=== PATIENT | male | born 1955 | race Caucasian/White ===

== ENCOUNTER → 2024-01-13 14:08 | Outpatient (REF) | payer MEDICARE, OTHER, SELFPAY | LOC: HWRAD 14:08 | PROVIDERS: ATTENDING PHYSICIAN Anesthesiology Pain Medicine; FAMILY PHYSICIAN Family Medicine | DX: M43.16 Spondylolisthesis, lumbar region (principal) | CPT/HCPCS: 72110 ==

== ENCOUNTER 2025-03-08 12:54 | Emergency (ER) | payer MEDICARE, OTHER, SELFPAY ==
[2025-03-08 12:57] VITALS: BP 142/81
[2025-03-08 15:06] VITALS: BP 140/84
[2025-03-08 15:36] LABS: % Basophils 0.5 % (0-2); % Eosinophils 0.2 % (0-6); % Immature Granulocytes 0.6 % (0-0.5); % Lymphocytes 16.7 % (20.5-51.1); % Monocytes 10.7 % (1.7-9.3); % Neutrophils 71.3 % (42.2-75.2); Absolute Immature Granulocytes 0.1 10^3/uL (0-0.05); Absolute Lymphocytes 1.4 10^3/uL (1.2-3.4); Absolute Monocytes 0.9 10^3/uL (0.1-0.6); Absolute Neutrophils 6.1 10^3/uL (1.4-6.5); Hematocrit 40.8 % (39.0-52.0); Hemoglobin 13.9 g/dL (13.0-18.0); Mean Corp Hgb Conc. 34.1 g/dL (33.0-37.0); Mean Corpuscular Hgb 30.9 pg (27.0-31.0); Mean Corpuscular Volume 90.7 fL (80.0-94.0); Mean Platelet Volume 9.1 fL (7.4-10.4); Nucleated Red Blood Cells % 0 % (-); Platelet Count 216 10^3/uL (130-400); Red Cell Dist. Width 13.1 % (11.5-14.5); White Blood Cell Count 8.5 10^3/uL (4.8-10.8)
[2025-03-08 15:44] LABS: ALT (SGPT) 26 U/L (0-50); AST (SGOT) 29 U/L (17-59); Albumin 4.1 g/dl (3.5-5.0); Alkaline Phosphatase 52 U/L (38-126); Blood Urea Nitrogen 21 mg/dl (9-20); Calcium 8.9 mg/dl (8.4-10.2); Carbon Dioxide 28 mmol/L (22-30); Chloride 107 mmol/L (98-107); Glucose 89 mg/dl (70-99); Potassium 4.5 mmol/L (3.5-5.1); Sodium 141 mmol/L (135-145); Total Bilirubin 0.6 mg/dl (0.2-1.3); Total Protein 6.3 g/dl (6.3-8.2); eGFR > 60.00
[2025-03-08 16:31] LABS: C-Reactive Protein < 5.00 mg/L (0.0-10.00)
[2025-03-08] MEDS: MORPHINE SULFATE 2 MG IV (17:02)
--- NOTE | 2025-03-08 17:30 | ED.GENMED ---
History of Present Illness
General
Chief Complaint: Back Pain
Time Seen by Provider: 03/08/25 14:15
History of Present Illness
History of Present Illness:
Note:
CHIEF COMPLAINT(S)
Back pain and sensation of breathlessness.
HISTORY OF PRESENT ILLNESS
The patient is a 69-year-old male with a history of lymphoma, treated with radiation therapy four years ago, presenting with persistent and severe back pain. He describes the pain as 'brutal' and unaltered since receiving an epidural injection last
Wednesday, which did not provide even temporary relief. The patient reports peculiar sensations, describing a strange feeling spreading down the leg and an explosive sensation in his toes. Despite these symptoms, he can ambulate and maintains control
over his bladder. Additionally, the patient reports episodes of not being able to breathe, mentioning this occurred late in the morning and yesterday, without associated pain or recent fevers or night sweats.
EXTERNAL RECORDS REVIEWED
The patient had an MRI approximately two weeks ago at this hospital to investigate his symptoms, prompted by his spine and pain management doctor�s concern over certain areas appearing enlarged on imaging. The results of this MRI are pending review.
CHRONIC MEDICAL CONDITIONS SIGNIFICANTLY AFFECTING CARE
- History of lymphoma treated with radiation.
- On blood thinners (specifically Eliquis).
REVIEW OF SYSTEMS
- Neurological: Numbness and peculiar sensations in the leg and toes, no loss of bladder control.
- General: No recent fever or night sweats.
- Respiratory: Episodes of breathlessness without associated pain.
PHYSICAL EXAM
GEN: Well appearing, NAD, WDWN
HEENT: Oral mucosa moist, no scleral icterus
Cardiac: Regular rate
Lung: No respiratory distress, no tachypnea
Abdomen: Soft, nontender
MSK: No gross deformity or injuries
Skin: Good color, no pallor or jaundice, no rashes
Neuro: AO x3, moves all extremities freely. Lower extremity strength is normal in all delgado, and patella reflexes are present and normal. Sensation to light touch is intact in both lower extremities.
Psych: Calm, cooperative
- Nursing notes reviewed and vital signs reviewed.
PLAN
The plan includes reviewing the patients recent MRI results and collaborating with Dr. Cooper from [facility] to determine the most appropriate course of action.
DIFFERENTIAL DIAGNOSIS
The Differential Diagnosis includes, in no particular order and is not limited to:
1. Radiation-induced spinal cord damage
2. Epidural abscess or hematoma
3. Lymphoma recurrence with spinal involvement
4. Disc herniation
5. Spinal stenosis
6. Degenerative disc disease
7. Osteoarthritis of the spine
8. Peripheral neuropathy
9. Spinal cord compression
10. Anxiety-related breathlessness
CARE-UPDATE
03/08/25 - 14:[address] Cooper; MRI unremarkable. Low suspicion for epidural abscess or hematoma. Suspecting non-lumbar causes for back pain; plan to conduct lab tests and imaging of abdomen and pelvis. Include CRP test for epidural abscess screening.
Disposition:
SUMMARY OF ENCOUNTER
The patient is a 69-year-old male with chronic back pain presenting with worsening symptoms. Alongside the back pain, he reports radicular symptoms into his legs but maintains urinary continence and does not exhibit saddle anesthesia. Despite a
recent epidural injection, he obtained no relief. After discussion with a pain specialist, it was decided to explore non-lumbar causes for the back pain.
DISPOSITION
Discharged in stable condition to follow up with outpatient pain specialty services.
ASSESSMENT
The patient�s chronic back pain, accompanied by radicular symptoms, suggests complex underlying causes not limited to lumbar origins.
EMERGENCY TREATMENTS ADMINISTERED
The patient received IV morphine, which improved his pain.
MANAGEMENT OF THE PATIENTS CARE WAS DISCUSSED WITH
The case was discussed with a pain specialist. It was concluded that non-lumbar etiologies should be pursued further.
PLAN
The patient is advised to follow up with an outpatient pain specialist for continued management.
MEDICAL DECISION MAKING
The patient presented with the complex issue of worsening chronic back pain. After evaluating the negative lab results, including a negative CRP which reduced the suspicion of an epidural abscess, the decision was made to explore causes beyond
lumbar origins, however workup was unrevealing. The discussion with the pain specialist shaped this management plan, and the choice of discharge was influenced by the patients improved pain response to IV morphine.
Past History
Past History
ED Past Medical History: Arrthythmia (Atrial fibrillation), CVA, HTN, Other (DVT), Other (Migraines,) and Other (Pulmonary stenosis)
ED Past Surgical History: Bowel resection, Cholecystectomy and Orthopedic (Left knee replacement)
Social History
Tobacco: Non-smoker
Alcohol: None
Drug: None
Personal:
Living: with family
Employment: Other
Family History
Family History: Other
Phy Exam
Physical Exam
Physical Exam:
.
Course
Orders/Labs/Results
Orders:
Orders
03/08/25 14:56
CT Abd/Pel (IV only)-DH only Urgent
Comment:
Reason For Exam: back pain
03/08/25 14:59
CRP [C-Reactive Protein] Urgent
Complete Blood Count/With Diff Urgent
Comprehensive Metabolic Panel Urgent
03/08/25 16:56
Morphine Sulfate 2 mg IV NOW STA
Abnormal Lab Results
03/08/25
14:59
RBC 4.50 L 10^6/uL
(4.70-6.10)
Abs Immat Gran (auto) 0.1 H 10^3/uL
(0-0.05)
Absolute Monos (auto) 0.9 H 10^3/uL
(0.1-0.6)
Immature Gran % 0.6 H %
(0-0.5)
Lymphocytes % 16.7 L %
(20.5-51.1)
Monocytes % 10.7 H %
(1.7-9.3)
BUN 21 H mg/dl
(9-20)
03/08/25 14:59
03/08/25 14:59
Vital Signs
Initial and Last Documented VS:
Initial Vital Signs
Temp Pulse Resp BP Pulse Ox
98.1 F 60 18 142/81 95
03/08/25 12:57 03/08/25 12:57 03/08/25 12:57 03/08/25 12:57 03/08/25 12:57
Last Documented Vital Signs
Temp Pulse Resp BP Pulse Ox
98.1 F 60 18 140/84 98
03/08/25 12:57 03/08/25 12:57 03/08/25 12:57 03/08/25 15:06 03/08/25 15:15
*Critical Care Note
Total Time (30-74mins, 75-104mins- exclusive of procedures): Not Applicable
ED Attending Note
-
Portions of this chart may have been created with voice recognition software.� Occasional wrong word or��sound alike� substitutions may have occurred due to the inherent limitations of voice recognition software.
Discharge Plan
Departure
Patient Disposition: Home (Routine Discharge)
Date of Disposition: 03/08/25
Time of Disposition: 17:30
Patient with high blood pressure during this ER visit?: No
Discharge Problem:
Chronic back pain
Instructions: Low Back Pain (DC)
Prescriptions:
New
tramadol 50 mg tablet
25 - 50 mg PO Q8H PRN (Reason: Pain) Qty: 10 0RF
No Action
losartan 50 mg Tablet
50 mg PO DAILY
escitalopram oxalate [Lexapro] 20 mg Tablet
20 mg PO DAILY
rosuvastatin 10 mg Tablet
10 mg PO DAILY
Eliquis 5 mg Tablet
5 mg PO BID
acetaminophen 325 mg Tablet
650 mg PO Q4HPRN PRN (Reason: FITZGERALD, mild pain, or temp >100.4F) Qty: 0 0RF
cyclobenzaprine 15 mg Capsule,Extended Release 24hr
10 mg PO DAILY PRN (Reason: muscle pain)
ugkfzhxjhg-bsxovrv-oewymoya 50-325-40 mg Capsule
1 cap PO Q4H PRN (Reason: migraine)
tramadol 50 mg Tablet
50 mg PO BID PRN (Reason: Pain)
metoprolol tartrate 25 mg Tablet
12.5 mg PO BID Qty: 60 0RF
dofetilide [Tikosyn] 500 mcg capsule
500 mcg PO Q12H Qty: 60 11RF
Referrals:
Layne Cooper MD [Active, Anesthesiology]
PRIVATE,PHYSICIAN [Family Provider, Internal Medicine]
Interventions
Interventions:
*Risk Screen - Suicide Last Done: 03/08/25 12:57
*General Assessment Last Done: 03/08/25 12:57
*Neglect/Abuse Screening Last Done: 03/08/25 12:57
*ED- Fall Risk Assessment Last Done: 03/08/25 15:00
*ED COVID-19 Vaccine History Last Done: 03/08/25 15:00
*Nursing Disposition Last Done: 03/08/25 17:53
ED-Musculoskeletal Assessment Last Done: 03/08/25 15:00
Discharge Date and Time
Discharge Date/Time: 03/08/25 17:54
Print Language: FINNISH
== END 2025-03-08 17:54 | disposition home or self-care (01) ==
LOC: EMR 12:54
PROVIDERS: Physician Assistant; EMERGENCY PHYSICIAN Student in an Organized Health Care Education/Training Program
DX: G89.29 Other chronic pain (principal); M54.9 Dorsalgia, unspecified; I10 Essential (primary) hypertension; I48.91 Unspecified atrial fibrillation; Z85.72 Personal history of non-Hodgkin lymphomas; Z79.01 Long term (current) use of anticoagulants; Z86.718 Personal history of other venous thrombosis and embolism; Z86.73 Personal history of transient ischemic attack (TIA), and cerebral infarction without residual deficits; Z92.3 Personal history of irradiation
CPT/HCPCS: 96374; 99284; 74177; 80053; 85025; 86140; Q9967

== ENCOUNTER 2025-07-31 12:17 | Emergency (ER) | payer MEDICARE, OTHER, SELFPAY ==
[2025-07-31 12:19] VITALS: BP 157/90
[2025-07-31 14:01] VITALS: BP 169/92
--- NOTE | 2025-07-31 14:02 | ED.GENMED ---
History of Present Illness
<Joshua Orta MD, Resident - Last Filed: 07/31/25 16:25>
General
Chief Complaint: Cancer Problem
Source: patient
Time Seen by Provider: 07/31/25 13:38
History of Present Illness
History of Present Illness:
Patient is a 70-year-old male with PMH of lymphoma s/p radiation who presents to the [place] ED for intractable pain. Patient states pain is chronic, 10/10 intensity, located on his spine, with radiation up his neck and down his extremities.
Pain is worse with movement. Patient follows with painting and coating worker at [facility]. Patient states he follows with his oncologist at [facility] in [place]. Patient normally takes
hydrocodone�acetaminophen 5 mg-325 mg for pain 3 times daily, but he has had breakthrough pain for the past year. Patient has had a spinal stimulator implanted and received epidural steroid injections, but these interventions have not resolved his
pain.
Past History
<Joshua Orta MD, Resident - Last Filed: 07/31/25 16:25>
Past History
ED Past Medical History: Arrthythmia (Atrial fibrillation), CVA, HTN, Other (DVT), Other (Migraines,) and Other (Pulmonary stenosis)
ED Past Surgical History: Bowel resection, Cholecystectomy and Orthopedic (Left knee replacement)
Social History
Tobacco: Non-smoker
Alcohol: None
Drug: None
Personal:
Living: with family
Employment: Other
Family History
Family History: Other
Review of Systems
<Joshua Orta MD, Resident - Last Filed: 07/31/25 16:25>
Review of Systems
Constitutional: Reports fatigue; Denies fever or chills
Musculoskeletal: Reports back pain
Neurological: Denies headache, weakness or numbness
Phy Exam
<Joshua Orta MD, Resident - Last Filed: 07/31/25 16:25>
Physical Exam
Physical Exam:
General: Mild distress due to pain. Easily communicative.
MSK: TTP along entire spine and paraspinal muscles. Pain elicited with forward flexion at the hips.
Neuro: A&O x 3. Motor, or sensory intact in all extremities. CN II through XII grossly intact. No focal deficits.
CV: RRR. S1, S2 noted. No M/R/G.
Pulm: CTAB. No wheezes or crackles.
GI: Soft, nontender. Nondistended.
Course
<Joshua Orta MD, Resident - Last Filed: 07/31/25 16:25>
Orders/Labs/Results
Orders:
Orders
07/31/25 14:16
CR Lumbar Spine 2 Or 3 Views Urgent
Comment:
Reason For Exam: intractable back pain
Thoracic Spine 3 Views CR [CR Thoracic Spine 3 Views] Urgent
Comment:
Reason For Exam: intractable back pain
07/31/25 14:18
Morphine Sulfate 4 mg IV NOW STA
07/31/25 14:21
Electrocardiogram (*1) Urgent
Reason for Study: QTc Monitoring
EKG- Treatment ONCE
07/31/25 14:42
Basic Metabolic Panel Urgent
Complete Blood Count/With Diff Urgent
07/31/25 15:08
Comprehensive Metabolic Panel Urgent
Abnormal Lab Results
07/31/25
14:42
Absolute Lymphs (auto) 0.8 L 10^3/uL
(1.2-3.4)
Absolute Monos (auto) 0.8 H 10^3/uL
(0.1-0.6)
Lymphocytes % 14.2 L %
(20.5-51.1)
Monocytes % 13.5 H %
(1.7-9.3)
07/31/25 14:42
07/31/25 15:08
Vital Signs
Initial and Last Documented VS:
Initial Vital Signs
Temp Pulse Resp BP Pulse Ox
98.3 F 91 16 157/90 97
07/31/25 12:19 07/31/25 12:19 07/31/25 12:19 07/31/25 12:19 07/31/25 12:19
Last Documented Vital Signs
Temp Pulse Resp BP Pulse Ox
97.9 F 83 18 152/95 98
07/31/25 16:37 07/31/25 16:37 07/31/25 16:37 07/31/25 16:37 07/31/25 16:37
<Rodger Browning, DO - Last Filed: 07/31/25 20:12>
Orders/Labs/Results
Orders:
Orders
07/31/25 14:16
CR Lumbar Spine 2 Or 3 Views Urgent
Comment:
Reason For Exam: intractable back pain
Thoracic Spine 3 Views CR [CR Thoracic Spine 3 Views] Urgent
Comment:
Reason For Exam: intractable back pain
07/31/25 14:18
Morphine Sulfate 4 mg IV NOW STA
07/31/25 14:21
Electrocardiogram (*1) Urgent
Reason for Study: QTc Monitoring
EKG- Treatment ONCE
07/31/25 14:42
Basic Metabolic Panel Urgent
Complete Blood Count/With Diff Urgent
07/31/25 15:08
Comprehensive Metabolic Panel Urgent
Abnormal Lab Results
07/31/25
14:42
Absolute Lymphs (auto) 0.8 L 10^3/uL
(1.2-3.4)
Absolute Monos (auto) 0.8 H 10^3/uL
(0.1-0.6)
Lymphocytes % 14.2 L %
(20.5-51.1)
Monocytes % 13.5 H %
(1.7-9.3)
07/31/25 14:42
07/31/25 15:08
Vital Signs
Initial and Last Documented VS:
Initial Vital Signs
Temp Pulse Resp BP Pulse Ox
98.3 F 91 16 157/90 97
07/31/25 12:19 07/31/25 12:19 07/31/25 12:19 07/31/25 12:19 07/31/25 12:19
Last Documented Vital Signs
Temp Pulse Resp BP Pulse Ox
97.9 F 83 18 152/95 98
07/31/25 16:37 07/31/25 16:37 07/31/25 16:37 07/31/25 16:37 07/31/25 16:37
<Joshua Orta MD, Resident - Last Filed: 07/31/25 16:25>
MDM/Problems Addressed
Differential Diagnosis Includes:
Disc herniation
Malignancy
Transverse myelitis
Cauda equina syndrome
Epidural abscess
Spinal stenosis
MDM/Problems Addressed:
Assessment: Patient is a 70-year-old male with PMH of lymphoma s/p radiation who presents to the [place] ED with intractable, 10/10 intensity pain that is worse with movement for the last year, which is not effectively treated with a spinal
stimulator, epidural steroid injections, and hydrocodone�acetaminophen 5 mg�325 mg. No associated symptoms. Spine and paraspinal muscles TTP. Hypertensive, otherwise AFVSS. CBC, CMP unremarkable. Thoracic and lumbar spine x-rays unrevealing as
to acute cause of back pain. Patient's pain improved with morphine, and he was counseled to follow-up with his painting and coating worker in the outpatient setting.
Plan:
#Back pain
EKG
Labs: CBC, CMP
Imaging: Lumbar and thoracic spine x-rays
Morphine 4 mg IV
Patient counseled to follow-up with his painting and coating worker in the outpatient setting
<Joshua Otra MD, Resident - Last Filed: 07/31/25 16:25>
*Pulse Oximetry
SaO2: 97
Oxygen Mode of Delivery: Room air
Patient hypoxic: no
*Critical Care Note
Total Time (30-74mins, 75-104mins- exclusive of procedures): Not Applicable
ED Attending Note
<Joshua Orta MD, Resident - Last Filed: 07/31/25 16:25>
-
Portions of this chart may have been created with voice recognition software.� Occasional wrong word or��sound alike� substitutions may have occurred due to the inherent limitations of voice recognition software.
<Rodger Browning, - Last Filed: 07/31/25 20:12>
ED Attending Note
Patient seen and examined by attending physician: Yes
I performed a history and physical exam of patient and discussed management with resident, I reviewed resident's note and agree with documented findings and plan of care.: Yes
ED Attending Note:
Note:
CHIEF COMPLAINT(S)
- Severe lower back pain
HISTORY OF PRESENT ILLNESS
The patient is a 70-year-old male with a significant history of spine complications, who presents to the emergency department with worsening lower back pain. The patient reports the pain as originating from the site of previous radiation therapy on
his spine. He also mentions having a spinal stimulator. The pain has progressively worsened over the past three months, with a significant increase in severity over the last three weeks. The patient describes nighttime as being particularly
bothersome for the pain. He previously was on morphine and Percocet but stopped taking hydrocodone two days ago due to side effects affecting his coordination, specifically mentioning that it impacted his ability to play Xbox.
He mentioned that he is not currently in contact with his previous managing physician from [facility], who advised him to seek hospital care. The patient is not experiencing fevers and continues to ambulate at home, primarily by walking during
the day and playing video games at night. His primary goal for this visit is to achieve temporary relief from his pain.
PAST MEDICAL AND SURIGICAL HISTORY
- Radiation therapy to the spine for unspecified condition
- Placement of spinal stimulator
- History of blood clot in the leg
CHRONIC MEDICAL CONDITIONS SIGNIFICANTLY AFFECTING CARE
- Blood clotting disorder requiring anticoagulation (on Eliquis)
MEDICATIONS
- Previously on morphine and Percocet
- Was taking hydrocodone but stopped two days ago
- Continues to take Eliquis (apixaban)
PHYSICAL EXAM
General: Alert, no acute distress.
Skin: Warm, dry.
Head: Normocephalic, atraumatic.
Neck: Supple, trachea midline.
Eye Ears, nose, mouth and throat: Oral mucosa moist.
Cardiovascular: Normal peripheral perfusion, No edema.
Respiratory: Respirations are non-labored.
Gastrointestinal : Abdomen nondistended
Back: Normal range of motion, Normal alignment.
Musculoskeletal: Normal ROM, normal strength.
Neurological: Alert and oriented to person, place, time, and situation, No focal neurological deficit observed.
Psychiatric: Cooperative, appropriate mood & affect.
PLAN
- Obtain x-ray imaging and blood tests to assess for any new or exacerbating factors contributing to the patients pain.
- Administer a dose of morphine to assist with pain control during the visit.
- Journeyman Patternmaker the patient on the need for ongoing follow-up for pain management and possible adjustments in his treatment plan.
DIFFERENTIAL DIAGNOSIS
The Differential Diagnosis includes, in no particular order and is not limited to:
1. Spinal stenosis
2. Metastatic bone disease
3. Vertebral fracture
4. Degenerative disc disease
5. Osteoporosis
6. Spinal infection or abscess
7. Herniated intervertebral disc
8. Neuropathic pain secondary to spinal condition
9. Referred pain from vascular or renal pathology
10. Chronic pain syndrome
Disposition:
SUMMARY OF ENCOUNTER
The patient, a 70-year-old male with a significant spinal history, presented to the emergency department with worsening lower back pain. The pain is centered around a previous radiation therapy site and is aggravated by nighttime activities. He
discontinued hydrocodone due to side effects. Previously managed by a physician in [facility], he now seeks temporary pain relief. An x-ray and labs showed no acute findings like cauda equina syndrome. Pain improved after administering morphine.
DISPOSITION
Discharge.
ASSESSMENT
Chronic pain exacerbation.
EMERGENCY TREATMENTS ADMINISTERED
Morphine was administered to manage and relieve the patients pain during the emergency visit.
PLAN
Discharge with instructions to follow up with a painting and coating worker for ongoing care. Return precautions were discussed and provided to the patient.
INDEPENDENT REVIEW OF LABS AND INTERPRETATION OF TESTS
My independent x-ray interpretation shows no new findings or acute changes that could explain acute symptoms such as cauda equina syndrome.
PATIENT EDUCATION AND COUNSELING
The patient was advised on the importance of continuing proper pain management and informed of return precautions for any worsening symptoms.
FOLLOW-UP INSTRUCTIONS
The patient was instructed to follow up with their painting and coating worker to continue chronic pain care.
MEDICAL DECISION MAKING
-Complexity of Data Reviewed: Chronic conditions affecting care include radiation therapy to the spine, placement of spinal stimulator, history of blood clot in the leg. Differential diagnosis considered: spinal stenosis, metastatic bone disease,
vertebral fracture, degenerative disc disease, osteoporosis, spinal infection or abscess, herniated intervertebral disc, neuropathic pain secondary to spinal condition, referred pain from vascular or renal pathology, chronic pain syndrome.
-Data:
Category 1
The x-ray and lab tests did not reveal any acute changes or findings suggestive of a severe underlying condition like cauda equina syndrome.
Category 2
No Category 2 input applicable.
Category 3
No management discussions documented with outside providers.
-Risk: Prescription medication was prescribed.
DIAGNOSIS
1. Chronic pain exacerbation (ICD-10: G89.29)
Discharge Plan
Departure
Patient Disposition: Home (Routine Discharge)
Date of Disposition: 07/31/25
Time of Disposition: 16:20
Patient with high blood pressure during this ER visit?: Yes
Condition: Good
Covid-19: Not Applicable
Discharge Problem:
Back pain
Instructions: Back Pain, BLOOD PRESSURE
Prescriptions:
No Action
losartan 50 mg Tablet
50 mg PO DAILY
escitalopram oxalate [Lexapro] 20 mg Tablet
20 mg PO DAILY
rosuvastatin 10 mg Tablet
10 mg PO DAILY
Eliquis 5 mg Tablet
5 mg PO BID
acetaminophen 325 mg Tablet
650 mg PO Q4HPRN PRN (Reason: FITZGERALD, mild pain, or temp >100.4F) Qty: 0 0RF
cyclobenzaprine 15 mg Capsule,Extended Release 24hr
10 mg PO DAILY PRN (Reason: muscle pain)
lrhcnyzpoh-fzpyseo-yrltbqcx 50-325-40 mg Capsule
1 cap PO Q4H PRN (Reason: migraine)
tramadol 50 mg Tablet
50 mg PO BID PRN (Reason: Pain)
metoprolol tartrate 25 mg Tablet
12.5 mg PO BID Qty: 60 0RF
dofetilide [Tikosyn] 500 mcg capsule
500 mcg PO Q12H Qty: 60 11RF
tramadol 50 mg tablet
25 - 50 mg PO Q8H PRN (Reason: Pain) Qty: 10 0RF
Referrals:
Benjamin Cai DO [Family Provider, Family Practice]
Activity Restrictions/Additional Instructions:
Follow-up with your painting and coating worker in the outpatient setting
Return to ED if worsening pain, weakness, numbness, bowel or bladder dysfunction, or any other worrisome symptoms
Interventions
Interventions:
*Risk Screen - Suicide Last Done: 07/31/25 12:20
*General Assessment Last Done: 07/31/25 14:04
*Neglect/Abuse Screening Last Done: 07/31/25 12:20
*ED- Fall Risk Assessment Last Done: 07/31/25 14:03
*ED COVID-19 Vaccine History Last Done: 07/31/25 14:02
*ED Influenza Vaccine History Last Done: 07/31/25 14:02
*Nursing Disposition Last Done: 07/31/25 16:39
Discharge Date and Time
Discharge Date/Time: 07/31/25 16:40
Print Language: LAO
[2025-07-31 14:04] VITALS: BMI 31.2
[2025-07-31] MEDS: MORPHINE SULFATE 4 MG IV (14:47)
[2025-07-31 14:50] LABS: Hematocrit 43.8 % (39.0-52.0); Hemoglobin 15.1 g/dL (13.0-18.0); Mean Corp Hgb Conc. 34.5 g/dL (33.0-37.0); Mean Corpuscular Volume 87.3 fL (80.0-94.0); Nucleated Red Blood Cells % 0 % (-); Platelet Count 195 10^3/uL (130-400); Red Cell Dist. Width 12.4 % (11.5-14.5)
[2025-07-31 15:10] LABS: Blood Urea Nitrogen 17 mg/dl (9-20); Calcium 9.1 mg/dl (8.4-10.2); Carbon Dioxide 28 mmol/L (22-30); Chloride 102 mmol/L (98-107); Estimated Creatinine Clearance 123 ml/min; Glucose 97 mg/dl (70-99); Sodium 137 mmol/L (135-145); eGFR > 60.00
[2025-07-31 15:18] VITALS: BP 145/81
[2025-07-31 15:29] LABS: ALT (SGPT) 22 U/L (0-50); AST (SGOT) 28 U/L (17-59); Albumin 4.0 g/dl (3.5-5.0); Alkaline Phosphatase 63 U/L (38-126); Blood Urea Nitrogen 15 mg/dl (9-20); Calcium 9.1 mg/dl (8.4-10.2); Carbon Dioxide 28 mmol/L (22-30); Chloride 103 mmol/L (98-107); Estimated Creatinine Clearance 123 ml/min; Glucose 99 mg/dl (70-99); Potassium 4.0 mmol/L (3.5-5.1); Sodium 136 mmol/L (135-145); Total Protein 6.4 g/dl (6.3-8.2); eGFR > 60.00
[2025-07-31 16:37] VITALS: BP 152/95
== END 2025-07-31 16:40 | disposition home or self-care (01) ==
LOC: EMR 12:17
PROVIDERS: EMERGENCY PHYSICIAN Emergency Medicine; FAMILY PHYSICIAN Family Medicine
DX: M54.6 Pain in thoracic spine (principal); I10 Essential (primary) hypertension; G89.29 Other chronic pain; I48.91 Unspecified atrial fibrillation; C85.90 Non-Hodgkin lymphoma, unspecified, unspecified site; Z86.718 Personal history of other venous thrombosis and embolism; Z79.01 Long term (current) use of anticoagulants; Z86.73 Personal history of transient ischemic attack (TIA), and cerebral infarction without residual deficits; Z92.3 Personal history of irradiation
CPT/HCPCS: 96374; 99284; 72072; 72100; 80048; 80053; 85025; 93005